=== PATIENT | female | born 1995 | race Caucasian/White ===

== ENCOUNTER 2016-08-21 18:51 | Emergency (ER) | payer BC ==
[~2016-08-21] VITALS: Ht 172.7 cm; Wt 68.5 kg
[2016-08-21 19:01] VITALS: TEMP 36.8; Ht 172.7 cm; Wt 68.5 kg
--- NOTE | 2016-08-21 19:32 | EMERGENCY ROOM VISIT NOTE ---
History First contact with patient: 19:05 Chief Complaint: ARM PAIN Stated Complaint: HEMATOMA L ARM History of Present Illness The patient is a 20 year old female who presents to the Emergency Room with complaints of left arm pain and swelling. The patient states that she donated plasma one week ago. She states that the staff told her that they perforated her vein and she had bleeding and hematoma. She states that the swelling has slightly improved but she still has ecchymosis and has trouble straightening her arm due to the swelling. She rates her discomfort a 6/10. She denies any redness, warmth, fevers. She denies any chest pain or trouble breathing. She states that she did pass out when she donated the plasma and they stated she tensed up with the needle in her arm. She does not believe that the needle was left in her arm. She states she has passed out in the past. She has not had any episodes of syncope since one week ago when she was donating the plasma. Review of Systems A 10 system review of systems was completed with positives and pertinent negatives listed in the HPI. Past Medical/Surgical History Patient denies Social History Smoking Status: Never Smoker Occupation Status: [employer] student Current/Historical Medications No Active Prescriptions or Reported Meds Allergies Coded Allergies: No Known Allergies (Unverified , 08/21/16) Physical Exam Vital Signs Date Time Temp Pulse Resp B/P Pulse Ox O2 Delivery O2 Flow Rate FiO2 08/21/16 21:25 95 18 106/66 96 08/21/16 19:01 36.8 85 20 122/83 97 Room Air Physical Exam VITALS: Vitals are noted on the nurse's note and reviewed by myself. Vital signs stable. GENERAL: This is a 20-year-old female, in no acute distress, nondiaphoretic, well-developed well-nourished. SKIN: There is ecchymosis, edema and tenderness to the left elbow and medial aspect of the upper arm.. Capillary reflex less than 2 seconds. HEAD: Normocephalic atraumatic. EARS: External auditory canals clear, tympanic membranes pearly michael without erythema or effusion bilaterally. EYES: Pupils equal round and reactive to light and accommodation. Conjunctivae without injection, sclerae without icterus. Extraocular movements intact. NOSE: Patent, turbinates without inflammation or discharge. MOUTH: Mucous membranes moist. Tonsils are not enlarged. Pharynx without erythema or exudate. Uvula midline. Airway patent. Tongue does not deviate. NECK: Supple without nuchal rigidity. No lymphadenopathy. No thyromegaly. Cervical spine is nontender. No JVD. HEART: Regular rate and rhythm without murmurs gallops or rubs. LUNGS: Clear to auscultation bilaterally without wheezes, rales or rhonchi. No retractions or accessory muscle use. MUSCULOSKELETAL: No muscle atrophy, erythema, noted. Decreased extension of the left elbow. Normal flexion. There is a hematoma noted to the left arm. Normal gait. Strength 5/5 throughout. NEURO: Patient was alert and oriented to person place and time. Normal sensation to light and sharp touch. No focal neurological deficits. Medical Decision & Procedures ER Provider Diagnostic Interpretation: LEFT ELBOW MIN 3 VIEWS ROUTINE CLINICAL HISTORY: left elbow pain, hematoma pain COMPARISON: None. DISCUSSION: The bones and joint spaces appear intact. There is no evidence of fracture, dislocation or bony disease. There is no evidence for soft tissue swelling. IMPRESSION: Negative study. VENOUS DOPPLER LEFT ARM UPPER EXTREMITY VENOUS DOPPLER HISTORY: Pain left upper extremity hematoma, recent plasma donation COMPARISON STUDY: None. FINDINGS: The internal jugular vein is patent. There is normal flow within the subclavian vein. There is normal flow and compressibility within the left axillary, basilic, brachial, radial, ulnar, and visualized cephalic veins. IMPRESSION: No DVT within the upper extremity. ED Course The patient was seen and examined. Previous visits were reviewed. Imaging was obtained as above. There is no obvious bony abnormality or foreign body on x- ray. There is no evidence for DVT on ultrasound. There is no erythema, warmth , fever, lymphangitic streaking. I do not suspect infectious process. The patient appears to have a hematoma. She was placed in an Vishal wrap. She was advised to watch the area closely. She should follow-up with her family doctor in 5-7 days if symptoms are not improving. She should return sooner with any worsening symptoms. Medical Decision Differential diagnosis includes cellulitis, phlebitis, DVT, hematoma, fracture, foreign body, among others Impression Primary Impression: Hematoma of arm Departure Information Dispostion Home / Self-Care Condition GOOD Prescriptions No Active Prescriptions or Reported Meds Patient Instructions ED [facility]ematoma, [facility] Additional Instructions Wear the VISHAL wrapped when up and about Ice over the next 24-48 hours Follow-up with [facility] if symptoms are not improving in 5-7 days Return with any worsening symptoms Problem Qualifiers Primary Impression: Hematoma of arm Encounter type: initial encounter Laterality: left Qualified Codes: S40.022A - Contusion of left upper arm, initial encounter
--- NOTE | 2016-08-21 20:11 | DIAGNOSTIC IMAGING REPORT ---
LEFT ELBOW MIN 3 VIEWS ROUTINE CLINICAL HISTORY: left elbow pain, hematoma pain COMPARISON: None. DISCUSSION: The bones and joint spaces appear intact. There is no evidence of fracture, dislocation or bony disease. There is no evidence for soft tissue swelling. IMPRESSION: Negative study. Electronically signed by: Davy Mascorro M.D. 08/21/2016 8:09 PM Dictated Date/Time: 08/21/2016 8:08 PM
--- NOTE | 2016-08-21 20:56 | DIAGNOSTIC IMAGING REPORT ---
VENOUS DOPPLER LEFT ARM UPPER EXTREMITY VENOUS DOPPLER HISTORY: Pain left upper extremity hematoma, recent plasma donation COMPARISON STUDY: None. FINDINGS: The internal jugular vein is patent. There is normal flow within the subclavian vein. There is normal flow and compressibility within the left axillary, basilic, brachial, radial, ulnar, and visualized cephalic veins. IMPRESSION: No DVT within the upper extremity. Electronically signed by: Davy Mascorro M.D. 08/21/2016 8:54 PM Dictated Date/Time: 08/21/2016 8:53 PM
[2016-08-21 21:25] VITALS: BP 106/66; PULSE 95; O2SAT 96
== END 2016-08-21 21:25 | disposition home or self-care (01) ==
LOC: C.EDB 18:53 → C.EDD 21:25
DX: S40.022A Contusion of left upper arm, initial encounter (principal); Y93.89 Activity, other specified; X58.XXXA Exposure to other specified factors, initial encounter; Y92.89 Other specified places as the place of occurrence of the external cause